=== PATIENT | female | born 1970 | race Caucasian/White ===

== ENCOUNTER 2016-03-09 13:17 | Emergency (ER) | payer OTHER ==
[2016-03-09 13:25] VITALS: BMI 27.3
[2016-03-09 14:13] LABS: URINE APPEARANCE SLCLOUDY; URINE BILIRUBIN NEGATIVE (NEGATIVE); URINE BLOOD NEGATIVE (NEGATIVE); URINE COLOR YELLOW; URINE GLUCOSE (UA) NEGATIVE (NEGATIVE); URINE KETONE NEGATIVE (NEGATIVE); URINE NITRITE NEGATIVE (NEGATIVE); URINE PROTEIN NEGATIVE (NEGATIVE); URINE UROBILINOGEN NEGATIVE E.U./dl (0.2-1.0)
[2016-03-09] MEDS ORDERED: METOCLOPRAMIDE HCL INJECTION 10 MG/2 ML VIAL IVPB ONE (14:17)
[2016-03-09 14:18] LABS: URINE LEUK ESTERASE TRACE (NEGATIVE)
[2016-03-09] MEDS ORDERED: SODIUM CHLORIDE 1,000 ML IV STA (14:18)
[2016-03-09 14:25] LABS: URINE MUCUS RARE; URINE RBC 1 /hpf (0-3); URINE WBC 1 /hpf (3-5)
[2016-03-09] MEDS ORDERED: METOCLOPRAMIDE HCL INJECTION 10 MG/2 ML VIAL ONE (14:26)
--- NOTE | 2016-03-09 14:30 | PDOC ---
History of Present Illness - General History Source: Patient - History of Present Illness Initial Comments: 03/09/16 14:41 The patient is a 46 year old female with a significant past medical history of asthma, legal blindness, and gastric bypass 2010 who presents to the Emergency Department with complaints of constant left-sided pressured headache and eye pain since last night. Pt reports experiencing nausea and dizziness before her headache was started. Pt reports taking Tylenol for her pain, with no relief. She denies any family history of migraines. She denies any fall or trauma. Pt denies fever, chills, abdominal pain, vomiting, diarrhea, chest pain, SOB, palpitations, back pain, neck pain. ALL:sulfamethoxazole, trimethoprim <Kalyn Lacey - Last Filed: 03/09/16 14:41> - General History Source: Patient Exam Limitations: No Limitations <Addy Garcia - Last Filed: 03/09/16 16:32> - General Chief Complaint: Pain Stated Complaint: PAIN Time Seen by Provider: 03/09/16 14:00 Past History <Kalyn Lacey - Last Filed: 03/09/16 14:41> - Past Medical History Asthma: Yes - Surgical History Abdominal Surgery: Yes (GASTRIC BYPASS: 10/2010) - Immunization History Td Vaccination: Yes Immunization Up to Date: Yes - Psycho/Social/Smoking Cessation Hx Anxiety: No Suicidal Ideation: No Smoking Status: Yes Smoking History: Never smoked Number of Cigarettes Smoked Daily: 0 Hx Alcohol Use: No Drug/Substance Use Hx: No Substance Use Type: None <Addy Garcia - Last Filed: 03/09/16 16:32> - Past Medical History Allergies/Adverse Reactions: Allergies Allergy/AdvReac Type Severity Reaction Status Date / Time sulfamethoxazole Allergy Verified 12/27/14 17:28 [From Bactrim] trimethoprim [From Bactrim] Allergy Verified 03/09/16 13:25 Home Medications: Ambulatory Orders Diphenhydramine HCl [Benadryl -] 25 mg PO Q6H PRN #20 capsule 03/09/16 Metoclopramide HCl [Reglan] 10 mg PO Q6H PRN #15 tablet 03/09/16 Naproxen [Naprosyn -] 500 mg PO BID PRN #14 tablet 03/09/16 Review of Systems - Review of Systems Able to Perform ROS?: Yes Comments:: 03/09/16 14:42 GENERAL/CONSTITUTIONAL: No fever or chills. No weakness. HEAD, EYES, EARS, NOSE AND THROAT: Yes: left eye pain. No: ear pain or discharge. No sore throat. CARDIOVASCULAR: No chest pain or shortness of breath. RESPIRATORY: No cough, wheezing, or hemoptysis. GASTROINTESTINAL: Yes: nausea No: vomiting, diarrhea or constipation. GENITOURINARY: No dysuria, frequency, or change in urination. MUSCULOSKELETAL: No joint or muscle swelling or pain. No neck or back pain. SKIN: No rash NEUROLOGIC: Yes: headache, dizziness No vertigo, loss of consciousness. ENDOCRINE: No increased thirst. No abnormal weight change. HEMATOLOGIC/LYMPHATIC: No anemia, easy bleeding, or history of blood clots. ALLERGIC/IMMUNOLOGIC: No hives or skin allergy. All Other Systems: Reviewed and Negative <Kalyn Lacey - Last Filed: 03/09/16 14:41> *Physical Exam - Vital Signs Last Vital Signs Temp Pulse Resp BP Pulse Ox 97.5 F L 70 20 109/70 100 03/09/16 13:22 03/09/16 13:22 03/09/16 13:22 03/09/16 13:22 03/09/16 13:22 - Physical Exam Comments: 03/09/16 14:44 GENERAL: Awake, alert, and fully oriented, in no acute distress HEAD: No signs of trauma EYES: +Chronic bilateral nystagmus. PERRLA, EOMI, sclera anicteric, conjunctiva clear ENT: Auricles normal inspection, hearing grossly normal, nares patent, oropharynx clear without exudates. Moist mucosa NECK: Normal ROM, supple, no lymphadenopathy, JVD, or masses LUNGS: Breath sounds equal, clear to auscultation bilaterally. No wheezes, and no crackles HEART: Regular rate and rhythm, normal S1 and S2, no murmurs, rubs or gallops ABDOMEN: Soft, nontender, normoactive bowel sounds. No guarding, no rebound. No masses EXTREMITIES: Normal range of motion, no edema. No clubbing or cyanosis. No cords, erythema, or tenderness NEUROLOGICAL: +5/5 strength upper and lower extremities.Sensation intact No facial drip. Finger to nose intact. Speech normal. Cranial nerves II through XII intact. normal gait. SKIN: Warm, Dry, normal turgor, no rashes or lesions noted. <RufusconradKalyn - Last Filed: 03/09/16 14:41> - Vital Signs Last Vital Signs Temp Pulse Resp BP Pulse Ox 97.5 F L 70 20 109/70 100 03/09/16 13:22 03/09/16 13:22 03/09/16 13:22 03/09/16 13:22 03/09/16 13:22 <Addy Garcia - Last Filed: 03/09/16 16:32> NIH Stroke Scale - Last Known Well Date/Time & Onset Date Last Known Well: 03/08/16 - Initial Evaluation Level of consciousness: Alert Ask patient the month and their age: Answers both correctly Ask patient to open & close eyes; make fist and let go: Obeys both correctly Best gaze (horizontal eye movement): Normal Visual field testing: No visual field loss Facial paresis (Show teeth/raise eyebrows/close eyes tight): Normal symmetrical movement Motor Function: Left Arm: Normal Motor Function: Right Arm: Normal (extends arm 90 (or 45) degrees for 10 seconds without drift Motor Function: Left Leg: Normal (extends leg 30 degrees for 5 seconds without drift) Motor Function: Right Leg: Normal (extends leg 30 degrees for 5 seconds without drift) Limb Ataxia: No ataxia Sensory(Use pinprick test arms,legs,trunk,face/side to side): Normal Best language (Describe picture, name items, read sentences): No Aphasia Dysarthria (read several words): Normal articulation Extinction and Inattention: No abnormality - Total Score NIH Stroke Scale Score: 0 <Addy Garcia - Last Filed: 03/09/16 16:32> Critical Care Time/[facility] Note - Medical Decision Making Note: 03/09/16 14:27 A portion of this note was documented by scribe services under my direction. I have reviewed the details of the note, within reason, and agree with the documentation with the following case summary and management plan written by me. Patient treated in the ED. Nursing notes are reviewed and incorporated into the medical decision-making. Vital signs reviewed. Peripheral IV access obtained by the nurse, laboratory studies are drawn and sent, reviewed and interpreted by myself. Vital Signs Temp Pulse Resp BP Pulse Ox 97.5 F L 70 20 109/70 100 03/09/16 13:22 03/09/16 13:22 03/09/16 13:22 03/09/16 13:22 03/09/16 13:22 46 year old female with history of legal blindness presents with left sided gradual headache. States that it is tension-like headache that is constant. Occasional photophobia. No fevers or neck stiffness. No history of migraines or family history. Denies trauma. I suspect that the headache is a migraine. Will treat with migraine medications and reassess. Given 1st time episode of headache, will perform head CT. I do NOT suspect SAH at this time (not thunderclapping, not sudden onset, and not worst headache of life). 03/09/16 16:[address] reviewed. No acute findings. Patient's headache resolved with IV benadryl and reglan. Again, likely migraines. I instructed the patient to write in a migraine journal as well to follow up with neurology. Patient verbalizes understanding and agrees with plan. I discussed the physical exam findings, ancillary test results and final diagnoses with the patient. I answered all of the patient's questions. The patient was satisfied with the care received and felt comfortable with the discharge plan and treatment plan. The patient will call their primary care physician within 24 hours to arrange follow-up and will return to the Emergency Department with any new, persistant or worsening symptoms. <Addy Garcia - Last Filed: 03/09/16 16:32> Discharge Disposition <Kalyn Lacey - Last Filed: 03/09/16 14:41> - Discharge Dispostion Admit: No <Addy Garcia - Last Filed: 03/09/16 16:32> - Diagnosis Migraine Qualifiers: Migraine type: other Status migrainosus presence: without status migrainosus Intractability: not intractable Qualified Code(s): G43.809 - Other migraine, not intractable, without status migrainosus - Discharge Dispostion Disposition: HOME Condition at time of disposition: Good - Prescriptions Prescriptions: Diphenhydramine HCl [Benadryl -] 25 mg PO Q6H PRN #20 capsule PRN Reason: Itching/Headache Naproxen [Naprosyn -] 500 mg PO BID PRN #14 tablet PRN Reason: Headache Metoclopramide HCl [Reglan] 10 mg PO Q6H PRN #15 tablet PRN Reason: Nausea/Headache - Referrals Referrals: STAFF,NOT ON [Primary Care Provider] - Richard Burris MD [Staff Physician] - - Patient Instructions Printed Discharge Instructions: DI for Migraine, DI for Headache Additional Instructions: Please take 500 mg naproxen every 12 hours as needed for headache. For additional relief, you may take 10 mg reglan every 6 hours and/or a tablet of benadryl every 6 hours as needed for headache. Please make a migraine journal. Follow up with a neurologist. Call to schedule an appointment.
[2016-03-09 16:44] VITALS: BP 105/64; PULSE 68; TEMP 98.4
== END 2016-03-09 16:44 | disposition home or self-care (01) ==
LOC: JER 13:17
PROC: 3E033GC Introduction of Other Therapeutic Substance into Peripheral Vein, Percutaneous Approach (ICD-10-PCS; principal; 2016-03-09)
DX: G43.809 Other migraine, not intractable, without status migrainosus (principal)
CPT/HCPCS: 70450-TC; 81003; 81015; 84703; 96374; 96375; 99282-25

== ENCOUNTER 2016-05-27 17:54 | Emergency (ER) | payer OTHER ==
--- NOTE | 2016-05-27 18:00 | PDOC ---
Rapid Medical Evaluation Time Seen by Provider: 05/27/16 17:58 Medical Evaluation: Allergies Allergy/AdvReac Type Severity Reaction Status Date / Time sulfamethoxazole Allergy Verified 12/27/14 17:28 [From Bactrim] trimethoprim [From Bactrim] Allergy Verified 03/09/16 13:25 05/27/16 17:58 46 year old female with suprapubic pain and dysuria since morning. Lower back pain, bilateral. No fevers/chills, nausa/vomiting. V/s notable for P 102. -UA/culture/urine -To FT for further evaluation
[2016-05-27 18:10] VITALS: BP 107/66; PULSE 89; TEMP 97.3; BMI 28.3
[2016-05-27 18:28] LABS: URINE APPEARANCE CLEAR; URINE BILIRUBIN NEGATIVE (NEGATIVE); URINE COLOR LTYELLOW; URINE GLUCOSE (UA) 2+ (NEGATIVE); URINE KETONE NEGATIVE (NEGATIVE); URINE LEUK ESTERASE NEGATIVE (NEGATIVE); URINE NITRITE NEGATIVE (NEGATIVE); URINE PROTEIN NEGATIVE (NEGATIVE); URINE UROBILINOGEN NEGATIVE E.U./dl (0.2-1.0)
[2016-05-27 18:29] LABS: URINE BLOOD 1+ (NEGATIVE)
--- NOTE | 2016-05-27 19:06 | PDOC ---
History of Present Illness - General Chief Complaint: Urinary Problem Stated Complaint: URINARY PROBLEM Time Seen by Provider: 05/27/16 17:58 History Source: Patient Exam Limitations: No Limitations - History of Present Illness Travel History: No Initial Comments: 05/28/16 22:55 She comes in with complaints of burning in her vulvar area. Is not sexually active, denies any vaginal drainage, but is concerned about recurrent urinary tract infection. Patient has been seen on a number of occasions, twice by myself with same types of complaints. Had never followed up with a specialist but can be insistent on need for antibiotics as she feels is a urinary tract infection. 2 instances of the past, one urinalysis revealed no infection but culture reported Escherichia coli, second visit urinalysis was negative with a negative urine culture. Patient denies any use of medications for relief of same Timing/Duration: reports: constant Quality: reports: mild, moderate, sharpness Pain Radiation: reports: no radiation Activities at Onset: reports: none Past History - Travel Traveled outside of the country in the last 30 days: No Close contact w/someone who was outside of country & ill: No - Past Medical History Allergies/Adverse Reactions: Allergies Allergy/AdvReac Type Severity Reaction Status Date / Time sulfamethoxazole Allergy Verified 05/27/16 17:59 [From Bactrim] trimethoprim [From Bactrim] Allergy Verified 05/27/16 17:59 Home Medications: Ambulatory Orders Diphenhydramine HCl [Benadryl -] 25 mg PO Q6H PRN #20 capsule 03/09/16 Metoclopramide HCl [Reglan] 10 mg PO Q6H PRN #15 tablet 03/09/16 Naproxen [Naprosyn -] 500 mg PO BID PRN #14 tablet 03/09/16 Hydrocortisone 2.5% Topical Cr [Anusol 2.5% Hc Cream -] 1 applic RC DAILY #1 tube 05/27/16 Asthma: Yes - Surgical History Abdominal Surgery: Yes (GASTRIC BYPASS: 10/2010) - Immunization History Td Vaccination: Yes Immunization Up to Date: Yes - Psycho/Social/Smoking Cessation Hx Anxiety: No Suicidal Ideation: No Smoking Status: Yes Smoking History: Never smoked Have you smoked in the past 12 months: No Number of Cigarettes Smoked Daily: 0 Information on smoking cessation initiated: No Hx Alcohol Use: No Drug/Substance Use Hx: No Substance Use Type: None Review of Systems - Review of Systems Able to Perform ROS?: Yes Is the patient limited Beninese proficient: Yes Constitutional: Yes: Symptoms Reported, See HPI, Malaise. No: Fever HEENTM: No: Symptoms Reported Respiratory: Yes: See HPI. No: Symptoms reported All Other Systems: Reviewed and Negative *Physical Exam - Vital Signs Last Vital Signs Temp Pulse Resp BP Pulse Ox 97.3 F L 89 18 107/66 100 05/27/16 17:59 05/27/16 17:59 05/27/16 17:59 05/27/16 17:59 05/27/16 17:59 - Physical Exam General Appearance: Yes: Appropriately Dressed, Apparent Distress HEENT: positive: WALDO, Normal ENT Inspection, TMs Normal, Pharynx Normal Neck: positive: Supple. negative: Tender Respiratory/Chest: positive: Lungs Clear, Normal Breath Sounds Female Pelvic Exam: positive: normal external exam (swelling, ulcerations or lesions, no masses, no tenderness to labial folds) Gastrointestinal/Abdominal: positive: Soft. negative: Tender Musculoskeletal: positive: Normal Inspection Extremity: positive: Normal Capillary Refill, Normal Inspection Integumentary: positive: Normal Color, Dry, Warm Neurologic: positive: etched circuit processor II-XII NML intact, Fully Oriented, Alert, Normal Mood/ Affect, Normal Response, Motor Strength 5/5 ED Treatment Course - ADDITIONAL ORDERS Additional order review: Laboratory Results 05/27/16 18:15 Urine Color Ltyellow Urine Appearance Clear Urine pH 5.0 Ur Specific [place] 1.015 Urine Protein Negative Urine Glucose (UA) 2+ H Urine Ketones Negative Urine Blood 1+ H Urine Nitrite Negative Urine Bilirubin Negative Urine Urobilinogen Negative Ur Leukocyte Esterase Negative Urine HCG, Qual Negative Progress Note - Progress Note Progress Note: Vulva dyspnea, will treat conservatively and follow through with careful tracking of urine culture Medical Decision Making - Medical Decision Making 05/27/16 19:13 Urinalysis does not reveal urinary tract infection although some mild glucose urea at +2. Fingerstick is 88. Discussed with patient in light of history of negative UAs and positive cultures, agreed will call her tomorrow with a pulmonary microbiology report and if necessary antibiotics will be called in. Meanwhile will treat discomfort with hydrocortisone and topical anesthetic, fluids, and refer to [facility]. *DC/Admit/Observation/Transfer Diagnosis at time of Disposition: Vulvodynia, unspecified - Discharge Dispostion Disposition: HOME Condition at time of disposition: Improved Admit: No - Prescriptions Prescriptions: Hydrocortisone 2.5% Topical Cr [Anusol 2.5% Hc Cream -] 1 applic RC DAILY #1 tube - Referrals Referrals: Christi Booker MD [Primary Care Provider] - Aidan Burciaga MD [Staff Physician] - - Patient Instructions Printed Discharge Instructions: Vulvodynia Additional Instructions: Rest, drink lots of fluids: Teas, water, soups Avoid contact with others and symptoms resolved Lots of handwashing and good hygiene Continue [id number] medications for symptomatic relief Tylenol or Motrin for fever and pain Followup with private physician in one week for repeat urinalysis/reevaluation Return to emergency department for worsened symptoms, fevers, dehydration
[2016-05-27 19:57] LABS: URINE BACTERIA RARE /hpf (NONE SEEN); URINE RBC 15 /hpf (0-3); URINE WBC 1 /hpf (3-5)
== END 2016-05-27 19:41 | disposition home or self-care (01) ==
LOC: JERFT 17:54 → JER 17:54 → JERFT 19:41
DX: N94.818 Other vulvodynia (principal)
CPT/HCPCS: 81003; 81015; 84703; 87086; 99281-25

== ENCOUNTER 2016-06-06 15:37 | Emergency (ER) | payer OTHER ==
[2016-06-06 15:56] VITALS: BP 103/61; PULSE 73; TEMP 97.1; BMI 27.2
--- NOTE | 2016-06-06 16:31 | PDOC ---
History of Present Illness - General Chief Complaint: Back Pain Stated Complaint: LOWER BACK PAIN Time Seen by Provider: 06/06/16 16:05 History Source: Patient Exam Limitations: No Limitations - History of Present Illness Initial Comments: 06/06/16 16:29 46 yr female past medical history of chronic low back pain presents to ER with c /o low back pain worse since yesterday. Pt denies trauma no fever or chills no abd pain neg urinary or bowel dysfunction. Pt states bending over, sitting to standing makes pain worse. no leg pain or saddle anesthesia. Severity: reports: mild Pain Location: reports: back Past History - Past Medical History Allergies/Adverse Reactions: Allergies Allergy/AdvReac Type Severity Reaction Status Date / Time sulfamethoxazole Allergy Verified 06/06/16 15:52 [From Bactrim] trimethoprim [From Bactrim] Allergy Verified 06/06/16 15:52 Home Medications: Ambulatory Orders Naproxen [Naprosyn -] 500 mg PO BID #14 tablet 06/06/16 Asthma: Yes Other medical history: LEGALLY BLIND, CHRONIC BACK PAIN - Surgical History Abdominal Surgery: Yes (GASTRIC BYPASS: 10/2010) - Immunization History Td Vaccination: Yes Immunization Up to Date: Yes - Psycho/Social/Smoking Cessation Hx Anxiety: No Suicidal Ideation: No Smoking Status: Yes Smoking History: Never smoked Have you smoked in the past 12 months: No Number of Cigarettes Smoked Daily: 0 Hx Alcohol Use: No Drug/Substance Use Hx: No Substance Use Type: None Trauma Specific PMHX - Complaint Specific PMHX Arthritis: No Back Injury: No Neck Injury: No Hx Sacro Iliac Joint Dysfunction: No Review of Systems - Review of Systems Able to Perform ROS?: Yes Is the patient limited Greek proficient: No Constitutional: No: Symptoms Reported HEENTM: No: Symptoms Reported Respiratory: No: Symptoms reported Cardiac (ROS): No: Symptoms Reported ABD/GI: No: Symptoms Reported : No: Symptoms Reported Musculoskeletal: Yes: Back Pain. No: Symptoms Reported Integumentary: No: Symptoms Reported Neurological: No: Symptoms reported *Physical Exam - Vital Signs Last Vital Signs Temp Pulse Resp BP Pulse Ox 97.1 F L 73 19 103/61 98 06/06/16 15:52 06/06/16 15:52 06/06/16 15:52 06/06/16 15:52 06/06/16 15:52 - Physical Exam General Appearance: Yes: Nourished, Appropriately Dressed HEENT: positive: EOMI, WALDO Neck: negative: Tender Respiratory/Chest: positive: Lungs Clear, Normal Breath Sounds. negative: Chest Tender Cardiovascular: positive: Regular Rhythm, Regular Rate Gastrointestinal/Abdominal: positive: Normal Bowel Sounds, Soft. negative: Tender Musculoskeletal: positive: Normal Inspection, Vertebral Tenderness (lumbar spine point tenderness ) Extremity: positive: Normal Capillary Refill, Normal Inspection, Normal Range of Motion Integumentary: positive: Normal Color, Dry, Warm Neurologic: positive: Fully Oriented, Alert, Normal Mood/Affect, Normal Response , Motor Strength 5/5 Medical Decision Making - Medical Decision Making 06/06/16 16:31 cc: low back pain acute on chronic not relieved with tylenol no urine or bowel dysfunction neg abd pain no rashes will check UA r/o (negative per Mckenna in microbiology) toradol for pain 06/06/16 18:00 xray is negative urine is negative will treat with NSAIDS follow up with the orthopedist. 06/06/16 18:02 *DC/Admit/Observation/Transfer Diagnosis at time of Disposition: Back pain Qualifiers: Back pain location: low back pain Chronicity: chronic Back pain laterality: midline Sciatica presence: without sciatica Qualified Code(s): M54.5 - Low back pain - Discharge Dispostion Disposition: HOME Condition at time of disposition: Good - Prescriptions Prescriptions: Naproxen [Naprosyn -] 500 mg PO BID #14 tablet - Referrals Referrals: Christi Booker MD [Primary Care Provider] - Daniel Juarez MD [Staff Physician] - - Patient Instructions Additional Instructions: take naprosyn as directed for pain follow with the orthopedist next week call Thursday to make appointment return to ER for any worsening symtpoms you may apply ice to the lower back every 2hrs for 20 minutes for pain
[2016-06-06 16:43] LABS: URINE APPEARANCE CLEAR; URINE BILIRUBIN NEGATIVE (NEGATIVE); URINE BLOOD NEGATIVE (NEGATIVE); URINE COLOR YELLOW; URINE GLUCOSE (UA) NEGATIVE (NEGATIVE); URINE KETONE TRACE (NEGATIVE); URINE LEUK ESTERASE NEGATIVE (NEGATIVE); URINE NITRITE NEGATIVE (NEGATIVE); URINE PROTEIN NEGATIVE (NEGATIVE); URINE UROBILINOGEN NEGATIVE E.U./dl (0.2-1.0)
[2016-06-06] MEDS ORDERED: KETOROLAC TROMETHAMINE 60 MG/2 ML VIAL IM ONE (17:31)
[2016-06-06] MEDS ORDERED: KETOROLAC TROMETHAMINE 60 MG/2 ML VIAL ONE (17:32)
== END 2016-06-06 18:15 | disposition home or self-care (01) ==
LOC: JERFT 15:37
PROC: 3E0233Z Introduction of Anti-inflammatory into Muscle, Percutaneous Approach (ICD-10-PCS; principal; 2016-06-06)
DX: M54.5 Low back pain (principal)
CPT/HCPCS: 72100-TC; 81003; 84703; 96372; 99281-25

== ENCOUNTER 2016-09-16 15:18 | Emergency (ER) | payer OTHER ==
[2016-09-16 15:26] VITALS: BP 90/53; PULSE 82; TEMP 98; BMI 28.3
[2016-09-16] MEDS ORDERED: ALBUTEROL SO4 2.5/IPRATROPIUM 0.5 INH SOL 3 ML VIAL.NEB. NEB ONE (15:42)
[2016-09-16] MEDS ORDERED: LIDOCAINE VISCOUS 2% ORAL/TOP 20 ML UNIT-DOSE CUP MM ONE (15:42)
--- NOTE | 2016-09-16 16:18 | PDOC ---
History of Present Illness - General Chief Complaint: Asthma Stated Complaint: SOB/asthma Time Seen by Provider: 09/16/16 15:34 History Source: Patient Exam Limitations: No Limitations - History of Present Illness Initial Comments: 09/16/16 16:00 46-year-old female presents to the ED with complaints of sore throat, dry irritating cough and irritation to her bronchial region after inhaling chemicals 2 days ago while at the job. Patient states initially she thought symptoms wouldr esolve but since symptoms continue and have caused her difficulty swallowing she decided come to the ER. Patient denies wheezing, shortness of breath, vomiting up blood, nasal bleeding, or previous episodes. Timing/Duration: reports: just prior to arrival Severity: reports: mild, moderate Possible Cause: Yes: no prior episodes Modifying Factors: improves with: coughing Associated Symptoms: reports: cough, sore throat. denies: wheezing Past History - Past Medical History Allergies/Adverse Reactions: Allergies Allergy/AdvReac Type Severity Reaction Status Date / Time sulfamethoxazole Allergy Verified 09/16/16 15:21 [From Bactrim] trimethoprim [From Bactrim] Allergy Verified 09/16/16 15:21 Home Medications: Ambulatory Orders Naproxen [Naprosyn -] 500 mg PO BID #14 tablet 06/06/16 Asthma: Yes - Surgical History Abdominal Surgery: Yes (GASTRIC BYPASS: 10/2010) - Reproductive History LMP Normal: Yes Is Patient Now?: No - Immunization History Td Vaccination: Yes Immunization Up to Date: Yes - Psycho/Social/Smoking Cessation Hx Anxiety: No Suicidal Ideation: No Smoking Status: Yes Smoking History: Never smoked Have you smoked in the past 12 months: No Number of Cigarettes Smoked Daily: 0 Information on smoking cessation initiated: No Hx Alcohol Use: No Drug/Substance Use Hx: No Substance Use Type: None Patient Lives Alone: No Lives with/in: spouse/SO Respiratory Specific PMHX - Complaint Specific PMHX Angina: No Bronchitis: Yes Pneumonia: No Pulmonary Embolus: No TB (Tuberculosis): No Review of Systems - Review of Systems Able to Perform ROS?: Yes Constitutional: No: Symptoms Reported HEENTM: Yes: Throat Pain Respiratory: No: Cough, Shortness of Breath Cardiac (ROS): No: Symptoms Reported ABD/GI: No: Symptoms Reported : No: Symptoms Reported Musculoskeletal: No: Symptoms Reported Integumentary: No: Symptoms Reported Neurological: No: Symptoms reported Endocrine: No: Symptoms Reported Hematologic/Lymphatic: No: Symptoms Reported *Physical Exam - Vital Signs Last Vital Signs Temp Pulse Resp BP Pulse Ox 98.0 F 82 18 90/53 98 09/16/16 15:21 09/16/16 15:21 09/16/16 15:21 09/16/16 15:21 09/16/16 15:21 - Physical Exam General Appearance: Yes: Nourished, Appropriately Dressed. No: Apparent Distress HEENT: positive: EOMI, WALDO, TMs Normal, Pharyngeal Erythema (mild. 1+ tonsils . uvula midline.). negative: Pale Conjunctivae Neck: positive: Supple Respiratory/Chest: positive: Lungs Clear, Normal Breath Sounds. negative: Respiratory Distress, Accessory Muscle Use Cardiovascular: positive: Regular Rhythm, Regular Rate. negative: Murmur Gastrointestinal/Abdominal: positive: Soft. negative: Tenderness Musculoskeletal: negative: CVA Tenderness Extremity: positive: Normal Capillary Refill. negative: Pedal Edema Integumentary: positive: Normal Color, Warm, Moist Neurologic: positive: Normal Mood/Affect, Motor Strength 5/5 (ambulatory) ED Treatment Course - Medications Given in the ED: ED Medications Discontinued Medications Generic Name Dose Route Start Last Admin Trade Name Freq PRN Reason Stop Dose Admin Albuterol/Ipratropium 1 amp 09/16/16 15:42 09/16/16 16:08 Duoneb - NEB 09/16/16 15:43 1 amp ONCE ONE Administration Lidocaine HCl 10 ml 09/16/16 15:42 09/16/16 16:08 Xylocaine 2% Viscous Oral - MM 09/16/16 15:43 10 ml ONCE ONE Administration Medical Decision Making - Medical Decision Making 09/16/16 16:00 Patient complains of sore throat, cough, and difficulty swallowing after inhaling chemicals while at work 2 days ago. Patient states history of asthma and does not have an inhaler anymore so decided come to the ER since symptoms continued. Patient ordered for DuoNeb here secondary to feeling of difficulty swallowing and cough. Patient also ordered for viscous lidocaine secondary sore throat. Will reevaluate shortly. 09/16/16 16:25 patient states feeling better with relief of cough and moderate relief of sore throat. Patient be discharged home with recommendations to use Chloraseptic spray, rest, drink plenty of fluids and non-abrasive. *DC/Admit/Observation/Transfer Diagnosis at time of Disposition: Cough, Sore throat - Discharge Dispostion Disposition: HOME - Patient Instructions Printed Discharge Instructions: Sore Throat, DI for Cough -- Adult Additional Instructions: Use Chloraseptic spray to alleviate your sore throat. Drink plenty of fluids. REST your voice Eat non- Abrasive and soft foods. Avoid talking too much. An use your inhaler as needed for cough
== END 2016-09-16 17:09 | disposition home or self-care (01) ==
LOC: JERFT 15:18
DX: R07.0 Pain in throat (principal); T59.891A Toxic effect of other specified gases, fumes and vapors, accidental (unintentional), initial encounter; R05 Cough; Y92.89 Other specified places as the place of occurrence of the external cause
CPT/HCPCS: 99281-25

== ENCOUNTER 2016-10-29 17:23 | Emergency (ER) | payer OTHER ==
[2016-10-29 17:36] VITALS: BP 91/60; PULSE 76; TEMP 98; BMI 28.3
--- NOTE | 2016-10-29 18:00 | PDOC ---
History of Present Illness - General Chief Complaint: Urinary Problem Stated Complaint: PAIN, ACUTE Time Seen by Provider: 10/29/16 17:39 History Source: Patient Exam Limitations: No Limitations - History of Present Illness Initial Comments: 10/29/16 18:00 Patient is a 46-year-old female, no significant medical history currently no medication reports dysuria started this morning when she woke up, denies any hematuria, no back pain. Patient states she has history of urinary tract infections and now with similar symptoms. Denies any sexual contact for 16 years. Past Medical History: Denies. Allergies: Bactrim Medications: None Family History: Non-contributory Social History: Denies smoking, alcohol use, or IVDU Review of Systems GENERAL/CONSTITUTIONAL: No fever or chills. No weakness. No weight change. HEAD, EYES, EARS, NOSE AND THROAT: No change in vision. No ear pain or discharge. No sore throat. CARDIOVASCULAR: No chest pain or shortness of breath. RESPIRATORY: No cough, wheezing, or hemoptysis. GASTROINTESTINAL: No nausea, vomiting, diarrhea or constipation. No rectal bleeding. GENITOURINARY: Dysuria and frequency, no hematuria MUSCULOSKELETAL: No joint or muscle swelling or pain. No neck or back pain. SKIN AND BREASTS: No rash or easy bruising. NEUROLOGIC: No headache, vertigo, loss of consciousness, or loss of sensation. ENDOCRINE: No increased thirst. No abnormal weight change. HEMATOLOGIC/LYMPHATIC: No anemia, easy bleeding, or history of blood clots. ALLERGIC/IMMUNOLOGIC: No hives or skin allergy. No latex allergy. Physical Exam: GENERAL: The patient is awake, alert, and fully oriented, in no acute distress. HEAD: Normal with no signs of trauma. EYES: Pupils equal, round and reactive to light, extraocular movements intact, sclera anicteric, conjunctiva clear. ENT: Ears normal, nares patent, oropharynx clear without exudates. Moist mucous membranes. No uvula deviation NECK: Normal range of motion, supple without lymphadenopathy, JVD, or masses. LUNGS: Breath sounds equal, clear to auscultation bilaterally. No wheezes, and no crackles. HEART: Regular rate and rhythm, normal S1 and S2 without murmur, rub or gallop. ABDOMEN: Soft, nontender, normoactive bowel sounds. No guarding, no rebound. No masses. No bruising or abrasions GENITALIA: External genitalia without any edema, no lesions, vaginal vault with no discharge. Cervical os closed. MUSCULOSKELETAL: Normal range of motion, no edema. No clubbing or cyanosis. No cords, erythema, or tenderness. No CVA Tenderness with fist. NEUROLOGICAL: Cranial nerves II through XII grossly intact. Normal speech, normal gait. PSYCH: Normal mood, normal affect. SKIN: Warm, Dry, normal turgor, no rashes or lesions noted. 10/29/16 18:37 Past History - Past Medical History Allergies/Adverse Reactions: Allergies Allergy/AdvReac Type Severity Reaction Status Date / Time sulfamethoxazole Allergy Verified 10/29/16 17:36 [From Bactrim] trimethoprim [From Bactrim] Allergy Verified 10/29/16 17:36 Home Medications: Ambulatory Orders Albuterol Sulfate Inhaler - [Ventolin HFA Inhaler -] 1 - 2 inh PO QID PRN #1 inhaler 09/16/16 Nitrofurantoin Monohyd/M-Cryst [Macrobid -] 100 mg PO BID #14 capsule 10/29/16 Phenazopyridine HCl [Pyridium] 200 mg PO TID #6 tablet 10/29/16 Asthma: Yes - Surgical History Abdominal Surgery: Yes (GASTRIC BYPASS: 10/2010) - Immunization History Td Vaccination: Yes Immunization Up to Date: Yes - Psycho/Social/Smoking Cessation Hx Anxiety: No Suicidal Ideation: No Smoking Status: Yes Smoking History: Never smoked Have you smoked in the past 12 months: No Number of Cigarettes Smoked Daily: 0 Hx Alcohol Use: No Drug/Substance Use Hx: No Substance Use Type: None *Physical Exam - Vital Signs Last Vital Signs Temp Pulse Resp BP Pulse Ox 98.0 F 76 20 91/60 99 10/29/16 17:33 10/29/16 17:33 10/29/16 17:33 10/29/16 17:33 10/29/16 17:33 Medical Decision Making - Medical Decision Making 10/29/16 18:03 A/P: Patient with dysuria, frequency, no hematuria. Patient with clinical signs of urinary tract infection plan is to perform urinalysis and urine culture 10/29/16 18:41 Laboratory Results - last 24 hr 10/29/16 10/29/16 17:50 18:09 Urine Color Ltyellow Urine Appearance Clear Urine pH 5.0 Urine Protein Negative Urine Glucose (UA) Negative Urine Ketones Negative Urine Blood 1+ H Urine Nitrite Negative Urine Bilirubin Negative Urine Urobilinogen Negative Ur Leukocyte Esterase 2+ H Urine HCG, Qual Negative Patient with +2 leukocyte esterase, microscopic still pending 10/29/16 18:44 + Urinary tract infection Will DC on macrobid. Follow up with urology. I discussed the physical exam findings, ancillary test results and final diagnoses with the patient. I answered all of the patient's questions. The patient was satisfied with the care received and felt comfortable with the discharge plan and treatment plan. The patient will call to arrange follow-up and will return to the Emergency Department with any new, persistent or worsening symptoms. *DC/Admit/Observation/Transfer Diagnosis at time of Disposition: Urinary tract infection Qualifiers: Urinary tract infection type: site unspecified Hematuria presence: without hematuria Qualified Code(s): N39.0 - Urinary tract infection, site not specified - Discharge Dispostion Disposition: HOME Condition at time of disposition: Good Admit: No - Prescriptions Prescriptions: Nitrofurantoin Monohyd/M-Cryst [Macrobid -] 100 mg PO BID #14 capsule Phenazopyridine HCl [Pyridium] 200 mg PO TID #6 tablet - Patient Instructions Printed Discharge Instructions: DI for Urinary Tract Infection (UTI) Additional Instructions: Recommend follow-up with urology Please note that the Pyridium for urinary pain may turn your urine orange If any fever, nausea vomiting, pain, back pain or any other concerns return to ER
[2016-10-29 18:04] LABS: URINE APPEARANCE CLEAR; URINE BILIRUBIN NEGATIVE (NEGATIVE); URINE BLOOD 1+ (NEGATIVE); URINE COLOR LTYELLOW; URINE GLUCOSE (UA) NEGATIVE (NEGATIVE); URINE KETONE NEGATIVE (NEGATIVE); URINE NITRITE NEGATIVE (NEGATIVE); URINE PROTEIN NEGATIVE (NEGATIVE); URINE UROBILINOGEN NEGATIVE mg/dL (0.2-1.0)
[2016-10-29 18:15] LABS: URINE LEUK ESTERASE 2+ (NEGATIVE)
[2016-10-29 18:36] LABS: URINE MUCUS RARE; URINE RBC 1 /hpf (0-3); URINE WBC 29 /hpf (3-5)
== END 2016-10-29 18:56 | disposition home or self-care (01) ==
LOC: JERFT 17:23
DX: N39.0 Urinary tract infection, site not specified (principal)
CPT/HCPCS: 81003; 81015; 84703; 87086; 99281-25

== ENCOUNTER 2017-01-25 20:23 | Emergency (ER) | payer OTHER ==
[2017-01-25 20:32] VITALS: BP 107/58; PULSE 102; TEMP 98.5; BMI 29.2
[2017-01-25] MEDS ORDERED: ALBUTEROL SO4 0.083% IH SOL 2.5 MG/3 ML VIAL.NEB. NEB ONE (20:34)
[2017-01-25] MEDS ORDERED: ALBUTEROL SO4 0.5 % INH SOLN 2.5 MG/0.5 ML VIAL.NEB. NEB ONE (20:35)
--- NOTE | 2017-01-25 21:56 | PDOC ---
History of Present Illness - General History Source: Patient - History of Present Illness Initial Comments: 01/25/17 21:40 The patient is a 46 year old female with a significant past medical history of asthma, legal blindness, and gastric bypass 2010 who presents to the Emergency Department with sore throat since and increasing difficulty breathing and coughing. Her history of asthma is mild, only 2 oe 3 episodes a year. Patient used her albuterol spray but with minimal results. <Mekhi Larios - Last Filed: 01/25/17 22:34> <India Britt - Last Filed: 01/25/17 22:42> - General Chief Complaint: Shortness of Breath Stated Complaint: S.O.B Time Seen by Provider: 01/25/17 20:48 Past History - Past Medical History Asthma: Yes COPD: No - Surgical History Abdominal Surgery: Yes (GASTRIC BYPASS: 10/2010) - Immunization History Td Vaccination: Yes Immunization Up to Date: Yes - Suicide/Smoking/Psychosocial Hx Smoking Status: Yes Smoking History: Never smoked Have you smoked in the past 12 months: No Number of Cigarettes Smoked Daily: 0 Information on smoking cessation initiated: Yes Hx Alcohol Use: No Drug/Substance Use Hx: No Substance Use Type: None <Mekhi Larios - Last Filed: 01/25/17 22:34> <India Britt - Last Filed: 01/25/17 22:42> - Past Medical History Allergies/Adverse Reactions: Allergies Allergy/AdvReac Type Severity Reaction Status Date / Time sulfamethoxazole Allergy Verified 01/25/17 20:25 [From Bactrim] trimethoprim [From Bactrim] Allergy Verified 01/25/17 20:25 Home Medications: Ambulatory Orders Albuterol Sulfate Inhaler - [Ventolin HFA Inhaler -] 1 - 2 inh PO QID PRN #1 inhaler 09/16/16 Azithromycin [Zithromax 250mg Tablets -] 250 mg PO DAILY #4 tablet 01/25/17 Azithromycin [Zithromax 250mg Tablets -] 250 mg PO DAILY 4 Days #4 tab 01/25/17 Respiratory Specific PMHX - Complaint Specific PMHX Angina: No Bronchitis: Yes Pneumonia: No Pulmonary Embolus: No TB (Tuberculosis): No <Mekhi Larios - Last Filed: 01/25/17 22:34> Review of Systems - Review of Systems Able to Perform ROS?: Yes Is the patient limited [place] Citizen proficient: No Constitutional: No: Symptoms Reported HEENTM: Yes: Nose Congestion. No: Symptoms Reported Respiratory: Yes: Cough Cardiac (ROS): No: Symptoms Reported ABD/GI: No: Symptoms Reported : No: Symptoms Reported <Mekhi Larios - Last Filed: 01/25/17 22:34> *Physical Exam - Vital Signs Last Vital Signs Temp Pulse Resp BP Pulse Ox 98.5 F 102 H 18 107/58 97 01/25/17 20:27 01/25/17 20:27 01/25/17 20:27 01/25/17 20:27 01/25/17 20:27 - Physical Exam General Appearance: Yes: Nourished, Appropriately Dressed. No: Apparent Distress HEENT: positive: WALDO, Normal ENT Inspection, Nasal Congestion, Rhinorrhea, Sinus Tenderness, Other (chornic nystagmus from , legally blind). negative : Muffled/Hoarse voice, Tonsillar Exudate, Tonsillar Erythema Neck: positive: Trachea midline, Normal Thyroid. negative: Tender Respiratory/Chest: positive: Lungs Clear, Normal Breath Sounds. negative: Chest Tender Cardiovascular: positive: Regular Rhythm, Regular Rate, S1, S2 Gastrointestinal/Abdominal: positive: Flat, Soft. negative: Normal Bowel Sounds , Tender Neurologic: positive: Fully Oriented, Alert, Normal Mood/Affect <HarrietMekhi - Last Filed: 01/25/17 22:34> - Vital Signs Last Vital Signs Temp Pulse Resp BP Pulse Ox 98.5 F 102 H 18 107/58 97 01/25/17 20:27 01/25/17 20:27 01/25/17 20:27 01/25/17 20:27 01/25/17 20:27 <India Britt - Last Filed: 01/25/17 22:42> ED Treatment Course - RADIOLOGY Radiology Studies Ordered: Category Date Time Status CHEST PA & LAT [RAD] Stat Radiology 01/25/17 21:30 Ordered - Medications Given in the ED: ED Medications Discontinued Medications Generic Name Dose Route Start Last Admin Trade Name Freq PRN Reason Stop Dose Admin Albuterol Sulfate 1 amp 01/25/17 20:35 01/25/17 20:35 Ventolin 0.5% - NEB 01/25/17 20:36 1 amp NOW ONE Administration <Mekhi Larios - Last Filed: 01/25/17 22:34> - Medications Given in the ED: ED Medications Discontinued Medications Generic Name Dose Route Start Last Admin Trade Name Diomedes PRN Reason Stop Dose Admin Albuterol Sulfate 1 amp 01/25/17 20:35 01/25/17 20:35 Ventolin 0.5% - NEB 01/25/17 20:36 1 amp NOW ONE Administration Azithromycin 500 mg 01/25/17 22:23 01/25/17 22:32 Azithromycin PO 01/25/17 22:24 500 mg ONCE ONE Administration Ibuprofen 600 mg 01/25/17 22:24 01/25/17 22:32 Motrin - PO 01/25/17 22:25 600 mg ONCE ONE Administration <India Britt - Last Filed: 01/25/17 22:42> Medical Decision Making - Medical Decision Making 01/25/17 22:00 46F with URI symptoms 01/25/17 22:32 Not wheezing, sinusitis CXR_ clear Likely walking pneumonia <Mekhi Larios - Last Filed: 01/25/17 22:34> *DC/Admit/Observation/Transfer - Discharge Dispostion Admit: No <Mekhi Larios - Last Filed: 01/25/17 22:34> <India Britt - Last Filed: 01/25/17 22:42> Diagnosis at time of Disposition: Atypical pneumonia - Discharge Dispostion Disposition: HOME - Prescriptions Prescriptions: Azithromycin [Zithromax 250mg Tablets -] 250 mg PO DAILY #4 tablet Azithromycin [Zithromax 250mg Tablets -] 250 mg PO DAILY 4 Days #4 tab - Patient Instructions Printed Discharge Instructions: Atypical Pneumonia Additional Instructions: Come back to ED for any new, worsening or concerning symptom. Follow up with primary care provider within the week
[2017-01-25] MEDS ORDERED: AZITHROMYCIN 500 MG TABLET PO ONE (22:23)
[2017-01-25] MEDS ORDERED: IBUPROFEN 600 MG TABLET (FP) PO ONE ×2 (22:24→22:29)
[2017-01-25] MEDS ORDERED: AZITHROMYCIN 250 MG TABLET ONE (22:29)
--- NOTE | 2017-01-25 22:30 | PDOC ---
Attending Attestation - Resident Resident Name: Mekhi Larios - HPI HPI: 01/25/17 22:28 Pt comes with cough x 5 days and sinusitis. She has a low grade temp - Physicial Exam PE: 01/25/17 22:29 Normal heart and lungs; py has a low grade temp. Bilat frontal and maxillary sinus pain 01/25/17 22:29 Agree with resident exam - Medical Decision Making 01/25/17 22:29 Home with zpak and ventolin inhaler
[2017-01-25] MEDS ORDERED: PSEUDOEPHEDRINE HCL 60 MG TABLET PO ONE (22:45)
== END 2017-01-25 22:37 | disposition home or self-care (01) ==
LOC: JER 20:23
PROC: 3E0F7GC Introduction of Other Therapeutic Substance into Respiratory Tract, Via Natural or Artificial Opening (ICD-10-PCS; principal; 2017-01-25)
DX: J18.9 Pneumonia, unspecified organism (principal); J45.909 Unspecified asthma, uncomplicated; H54.8 Legal blindness, as defined in USA; Z98.84 Bariatric surgery status
CPT/HCPCS: 71020-TC; 94640; 99282-25

== ENCOUNTER 2017-01-31 13:41 | Emergency (ER) | payer OTHER ==
[2017-01-31 14:24] VITALS: BP 112/61; PULSE 76; TEMP 97.4; BMI 29.2
[2017-01-31] MEDS ORDERED: guaiFENesin/D-METHORPHAN HB 10 ML UNIT-DOSE CUPS PO ONE (15:19)
[2017-01-31] MEDS ORDERED: ALBUTEROL SO4 2.5/IPRATROPIUM 0.5 INH SOL 3 ML VIAL.NEB. NEB ONE ×2 (15:19→15:23)
[2017-01-31] MEDS ORDERED: IBUPROFEN 600 MG TABLET (FP) PO ONE ×2 (15:19→15:23)
--- NOTE | 2017-01-31 15:19 | PDOC ---
History of Present Illness - General Chief Complaint: RX Refill Stated Complaint: RX REFILL Time Seen by Provider: 01/31/17 14:42 History Source: Patient Exam Limitations: No Limitations - History of Present Illness Initial Comments: 01/31/17 15:16 Patient is a 46-year-old female with past medical history of asthma, who presents to the emergency department today complaining of nasal congestion and sinus pain. She is currently requesting a refill of her azithromax and sudafed. Patient was seen in the emergency department one week ago (01/25/17) and diagnosed with a walking pneumonia. She was given azithromycin at that time. Patient finished the prescription. She was also given Sudafed for her congestion which she said was helping however today she feels that it is not working the same way. She states that her sinus pain is now getting worse and she feels more congested. Admits to cough. Denies fevers, chills, shortness of breath, nausea, vomiting, diarrhea, wheezing. Past History - Travel Traveled outside of the country in the last 30 days: No Close contact w/someone who was outside of country & ill: No - Past Medical History Allergies/Adverse Reactions: Allergies Allergy/AdvReac Type Severity Reaction Status Date / Time sulfamethoxazole Allergy Verified 01/31/17 14:21 [From Bactrim] trimethoprim [From Bactrim] Allergy Verified 01/31/17 14:21 Home Medications: Ambulatory Orders Acetaminophen W/ Codeine #3 [Tylenol # 3 -] 1 tab PO Q6H PRN #10 tablet MDD 4 Albuterol Sulfate Inhaler - [Ventolin HFA Inhaler -] 1 - 2 inh PO Q4H #1 inhaler 01/31/17 Ibuprofen 800 mg PO TID #30 tablet 01/31/17 Prednisone [Deltasone -] 40 mg PO DAILY #10 tablet 01/31/17 Asthma: Yes COPD: No DVT: No - Surgical History Abdominal Surgery: Yes (GASTRIC BYPASS: 10/2010) - Immunization History Td Vaccination: Yes Immunization Up to Date: Yes - Suicide/Smoking/Psychosocial Hx Smoking Status: Yes Smoking History: Former smoker Have you smoked in the past 12 months: No Number of Cigarettes Smoked Daily: 0 If you are a former smoker, when did you quit?: 20yrs Information on smoking cessation initiated: No Hx Alcohol Use: No Drug/Substance Use Hx: No Substance Use Type: None Review of Systems - Review of Systems Able to Perform ROS?: Yes Comments:: 01/31/17 15:19 CONSTITUTIONAL: Absent: fever, chills, diaphoresis, generalized weakness, malaise, loss of appetite HEENT: Present: nasal congestion, sinus pain Absent: throat pain, throat swelling, difficulty swallowing, mouth swelling, ear pain, eye pain, visual Changes CARDIOVASCULAR: Absent: chest pain, loss of consciousness, palpitations, irregular heart rate, peripheral edema RESPIRATORY: Present: cough Absent: cough, shortness of breath, dyspnea with exertion, orthopnea, wheezing, stridor, hemoptysis GASTROINTESTINAL: Absent: abdominal pain, abdominal distension, nausea, vomiting, diarrhea, constipation, melena, hematochezia GENITOURINARY: Absent: dysuria, frequency, urgency, hesitancy, hematuria, flank pain, genital pain MUSCULOSKELETAL: Absent: myalgia, arthralgia, joint swelling SKIN: Absent: rash, itching, pallor HEMATOLOGIC/IMMUNOLOGIC: Absent: easy bleeding, easy bruising, lymphadenopathy, frequent infections ENDOCRINE: Absent: unexplained weight gain, unexplained weight loss, heat intolerance, cold intolerance NEUROLOGIC: Absent: headache, focal weakness or paresthesias, dizziness, unsteady gait, seizure, mental status changes, bladder or bowel incontinence PSYCHIATRIC: Absent: anxiety, depression, suicidal or homicidal ideation, hallucinations. Is the patient limited [place] proficient: No *Physical Exam - Vital Signs Last Vital Signs Temp Pulse Resp BP Pulse Ox 97.4 F L 76 15 112/61 95 01/31/17 14:22 01/31/17 14:22 01/31/17 14:22 01/31/17 14:22 01/31/17 14:22 - Physical Exam Comments: 01/31/17 15:20 GENERAL: Well developed, well nourished. Awake and alert. No acute distress. HEENT: Normocephalic, atraumatic. PERRLA, EOMI. No conjunctival pallor. Sclera are non- icteric. Moist mucous membranes. Oropharynx is clear. TTP over maxillary sinuses. NECK: Supple. Full ROM. No JVD. Carotid pulses 2+ and symmetric, without bruits. No thyromegaly. No lymphadenopathy. CARDIOVASCULAR: Regular rate and rhythm. No murmurs, rubs, or gallops. Distal pulses are 2+ and symmetric. PULMONARY: Scattered wheezing. No evidence of respiratory distress. No rales or rhonchi. ABDOMINAL: Soft. Non-tender. Non-distended. No rebound or guarding. No organomegaly. Normoactive bowel sounds. MUSCULOSKELETAL Normal range of motion at all joints. No bony deformities or tenderness. No CVA tenderness. EXTREMITIES: No cyanosis. No clubbing. No edema. No calf tenderness. SKIN: Warm and dry. Normal capillary refill. No rashes. No jaundice. NEUROLOGICAL: Alert, awake, appropriate. Cranial nerves 2-12 intact. No deficits to light touch and temperature in face, upper extremities and lower extremities. No motor deficits in the in face, upper extremities and lower extremities. Normoreflexic in the upper and lower extremities. Normal speech. Toes are down- going bilaterally. Gait is normal without ataxia. PSYCHIATRIC: Cooperative. Good eye contact. Appropriate mood and affect. Medical Decision Making - Medical Decision Making 01/31/17 15:21 Patient is a 46-year-old female with PMH of asthma who presents to the emergency department today requesting a refill of her Sudafed for her sinus congestion, and for a prescription for a refill of her albuterol. Will treat pt. symptoms now in the ED. Will send rx for steroids, tylenol number three and albuterol to help with her cough and congestion. Pt. still covered on her azithromax and explained to her she does not need a new prescription at this time. 01/31/17 17:02 Pt. feeling much better after albuterol and robitussin treatment. Will d/c home at this time with new medications. Pt. instructed to f/u with her PCP on Thursday. 01/31/17 23:25 *DC/Admit/Observation/Transfer Diagnosis at time of Disposition: Sinusitis, Bronchospasm - Discharge Dispostion Disposition: HOME Condition at time of disposition: Good Admit: No - Prescriptions Prescriptions: Acetaminophen W/ Codeine #3 [Tylenol # 3 -] 1 tab PO Q6H PRN #10 tablet MDD 4 PRN Reason: Cough Albuterol Sulfate Inhaler - [Ventolin HFA Inhaler -] 1 - 2 inh PO Q4H #1 inhaler Ibuprofen 800 mg PO TID #30 tablet Prednisone [Deltasone -] 40 mg PO DAILY #10 tablet - Referrals Referrals: Piyush Moore MD, MD [Staff Physician] - - Patient Instructions Printed Discharge Instructions: DI for Asthma -- Adult, DI for Sinusitis Additional Instructions: You have congestion and cough. Please take the albuterol inhaler every 4 hours for the next week. Take the steroids as prescribed for the next five days. You are still covered by the z-pack that was prescribed to you on the . You may take 800mg of Motrin every 8 hours as needed for pain not to exceed 3,000mg a day. You were also prescribed robitussin. Please do not drive after taking this medication. Please follow up with your primary care doctor on Thursday. Return to the ED if you have worsened fevers, chills, shortness of breath or any changes in your symptoms - Post Discharge Activity
[2017-01-31] MEDS ORDERED: guaiFENesin/D-METHORPHAN HB 10 ML UNIT-DOSE CUPS ONE (15:23)
== END 2017-01-31 16:46 | disposition home or self-care (01) ==
LOC: JERFT 13:41
PROC: 3E0F7GC Introduction of Other Therapeutic Substance into Respiratory Tract, Via Natural or Artificial Opening (ICD-10-PCS; principal; 2017-01-31)
DX: J01.81 Other acute recurrent sinusitis (principal); J45.901 Unspecified asthma with (acute) exacerbation; Z87.891 Personal history of nicotine dependence
CPT/HCPCS: 94664; 99281-25

== ENCOUNTER 2017-12-13 15:25 | Emergency (ER) | payer OTHER ==
[2017-12-13 15:34] VITALS: BP 99/68; PULSE 72; TEMP 97.9; BMI 31.3
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
[2017-12-14] MEDS ORDERED: CEPHALEXIN MONOHYDRATE 500 MG CAPSULE (UD) ONE (07:18)
== END 2017-12-13 15:55 | disposition home or self-care (01) ==
LOC: JERFT 15:25
DX: T22.312A Burn of third degree of left forearm, initial encounter (principal); T31.0 Burns involving less than 10% of body surface; X15.0XXA Contact with hot stove (kitchen), initial encounter; Y93.89 Activity, other specified; Y92.030 Kitchen in apartment as the place of occurrence of the external cause; Y99.8 Other external cause status; H54.8 Legal blindness, as defined in USA; Z88.2 Allergy status to sulfonamides
CPT/HCPCS: 99281-25

== ENCOUNTER 2018-01-29 15:12 | Emergency (ER) | payer OTHER ==
[2018-01-29 15:17] VITALS: BP 115/72; PULSE 96; TEMP 98.1; BMI 30.2
--- NOTE | 2018-01-29 15:20 | PDOC ---
Rapid Medical Evaluation Medical Evaluation: Allergies Allergy/AdvReac Type Severity Reaction Status Date / Time sulfamethoxazole Allergy Verified 01/29/18 15:15 [From Bactrim] trimethoprim [From Bactrim] Allergy Verified 01/29/18 15:15 01/29/18 15:15 I have performed a brief in-person evaluation of this patient. The patient presents with a chief complaint of: Chest pain x 3 days 47 y/o F with no sig pmh presents with R sided CP x 3 days; pain is worse with coughing and sneezing. Denies fever, sob, n/v, rhinorrhea, sick contacts, recent travel, family history of CAD, smoking or drug use. On PE, lungs CTA B/L, cardio RRR, +reproducible L sided chest wall TTP Patient with no risk factors for ACS Plan: EKG, UCG, CXR The patient will proceed to the ED for further evaluation.
--- NOTE | 2018-01-29 17:02 | PDOC ---
History of Present Illness - General Chief Complaint: Pain, Acute Stated Complaint: CHEST PAIN Time Seen by Provider: 01/29/18 16:24 History Source: Patient - History of Present Illness Timing/Duration: reports: other Past History - Past Medical History Allergies/Adverse Reactions: Allergies Allergy/AdvReac Type Severity Reaction Status Date / Time sulfamethoxazole Allergy Verified 01/29/18 15:15 [From Bactrim] trimethoprim [From Bactrim] Allergy Verified 01/29/18 15:15 Home Medications: Ambulatory Orders Acetaminophen [Tylenol] 2 tab PO Q6H #30 capsule 01/29/18 Asthma: Yes COPD: No CHF: No DVT: No - Surgical History Abdominal Surgery: Yes (GASTRIC BYPASS: 10/2010) - Immunization History Td Vaccination: Yes Immunization Up to Date: Yes - Suicide/Smoking/Psychosocial Hx Smoking Status: Yes Smoking History: Former smoker Have you smoked in the past 12 months: No Number of Cigarettes Smoked Daily: 0 If you are a former smoker, when did you quit?: 20yrs Information on smoking cessation initiated: No Hx Alcohol Use: No Drug/Substance Use Hx: No Substance Use Type: None Respiratory Specific PMHX - Complaint Specific PMHX Angina: No Bronchitis: Yes Pneumonia: No Pulmonary Embolus: No TB (Tuberculosis): No Review of Systems - Review of Systems Constitutional: No: Fever Respiratory: No: Cough, Shortness of Breath Cardiac (ROS): Yes: Chest Pain. No: Lightheadedness, Palpitations, Syncope *Physical Exam - Vital Signs Last Vital Signs Temp Pulse Resp BP Pulse Ox 98.1 F 96 H 18 115/72 100 01/29/18 15:15 01/29/18 15:15 01/29/18 15:15 01/29/18 15:15 01/29/18 15:15 - Physical Exam General Appearance: Yes: Appropriately Dressed. No: Apparent Distress HEENT: positive: Normal Voice Neck: positive: Supple Respiratory/Chest: positive: Chest Tender (to L upper chest), Lungs Clear, Normal Breath Sounds. negative: Respiratory Distress Cardiovascular: positive: Regular Rate, S1, S2 Extremity: positive: Normal Inspection Integumentary: positive: Dry, Warm Neurologic: positive: Fully Oriented, Alert, Normal Mood/Affect ED Treatment Course - ADDITIONAL ORDERS Additional order review: Laboratory Results 01/29/18 15:42 Urine HCG, Qual Negative Medical Decision Making - Medical Decision Making 01/29/18 16:57 47-year-old female, denies any past medical history, here with left-sided, non- radiating chest pain for 3 days, sore in nature, 5/10, only hurts to touch and when she coughs. Pain does not get worse with exacerbation and denies shortness of breath, diaphoresis, nausea, vomiting, palpitations, leg pain, swelling, f/c. No similar pain in past. No recent trauma. No known history of CAD and no recent cardiac testing. see exam CP x 3 days Suspect MSK as very reproducible on exam, unlikely ACS or dissection and does not meet threshold for further w/u, PERCs out EKG and CXR normal -dc w/ pain control and pmd f/u *DC/Admit/Observation/Transfer Diagnosis at time of Disposition: Chest pain Qualifiers: Chest pain type: unspecified Qualified Code(s): R07.9 - Chest pain, unspecified - Discharge Dispostion Disposition: HOME Condition at time of disposition: Good - Prescriptions Prescriptions: Acetaminophen [Tylenol] 2 tab PO Q6H #30 capsule - Referrals - Patient Instructions Printed Discharge Instructions: DI for Chest Pain Additional Instructions: Your EKG and CXR was normal today Take tylenol for pain as needed If pain persists, please follow up with your PMD - Post Discharge Activity
--- NOTE | 2018-01-30 12:03 | EKG ---
Test Reason : Blood Pressure : / mmHG Vent. Rate : 088 BPM Atrial Rate : 088 BPM P-R Int : 140 ms QRS Dur : 084 ms QT Int : 354 ms P-R-T Axes : 043 011 022 degrees QTc Int : 428 ms NORMAL SINUS RHYTHM POSSIBLE LEFT ATRIAL ENLARGEMENT BORDERLINE ECG NO PREVIOUS ECGS AVAILABLE Confirmed by NAVEEN STEELE MD ([id number]) on 01/30/2018 12:03:30 PM Referred By: Confirmed By:NAVEEN STEELE MD
== END 2018-01-29 17:08 | disposition home or self-care (01) ==
LOC: JERFT 15:12
DX: R07.9 Chest pain, unspecified (principal); Z98.84 Bariatric surgery status; J45.909 Unspecified asthma, uncomplicated; Z87.891 Personal history of nicotine dependence
CPT/HCPCS: 71046-TC-FY; 84703; 93005; 93010; 99281-25

== ENCOUNTER 2018-05-10 17:41 | Emergency (ER) | payer OTHER ==
--- NOTE | 2018-05-10 17:52 | PDOC ---
Rapid Medical Evaluation Time Seen by Provider: 05/10/18 17:43 Medical Evaluation: Allergies Allergy/AdvReac Type Severity Reaction Status Date / Time sulfamethoxazole Allergy Verified 01/29/18 15:15 [From Bactrim] trimethoprim [From Bactrim] Allergy Verified 01/29/18 15:15 05/10/18 17:43 I have performed a brief in-person evaluation of this patient. The patient presents with a chief complaint of: right lower molar pain- on abx and motrin Pertinent physical exam findings: No palpable abscess I have ordered the following: nothing The patient will proceed to the ED for further evaluation. Discharge Disposition - Diagnosis Tooth ache - Referrals - Patient Instructions - Post Discharge Activity
[2018-05-10 18:01] VITALS: BP 103/67; PULSE 98; TEMP 97.7; BMI 36.3
[2018-05-10] MEDS ORDERED: ACETAMINOPHEN 500 MG TABLET (FP) PO ONE (18:40)
[2018-05-10] MEDS ORDERED: ACETAMINOPHEN 500 MG TABLET (FP) ONE (18:43)
--- NOTE | 2018-05-10 18:43 | PDOC ---
History of Present Illness - General Chief Complaint: Toothache Stated Complaint: TOOTH JEANNETTE Time Seen by Provider: 05/10/18 17:43 - History of Present Illness Initial Comments: 05/10/18 18:40 48-year-old female with a past medical history significant for dental issues. She is currently on a course of amoxicillin for toothache. She reports to the emergency room for further evaluation and treatment looking for a root canal. Her dentist 8 she needs a root canal. No fever Past History - Past Medical History Allergies/Adverse Reactions: Allergies Allergy/AdvReac Type Severity Reaction Status Date / Time sulfamethoxazole Allergy Verified 05/10/18 17:57 [From Bactrim] trimethoprim [From Bactrim] Allergy Verified 05/10/18 17:57 Home Medications: Ambulatory Orders Amoxicillin - [Amoxicillin 500mg Capsule -] 500 mg PO TID 05/10/18 Ibuprofen [Motrin -] 800 mg PO QID 05/10/18 Asthma: Yes COPD: No CHF: No DVT: No Other medical history: LEGAL BLIND - Surgical History Abdominal Surgery: Yes (GASTRIC BYPASS: 10/2010) - Immunization History Td Vaccination: Yes Immunization Up to Date: Yes - Suicide/Smoking/Psychosocial Hx Smoking Status: Yes Smoking History: Never smoked Have you smoked in the past 12 months: No Number of Cigarettes Smoked Daily: 0 If you are a former smoker, when did you quit?: 20yrs Hx Alcohol Use: No Drug/Substance Use Hx: No Substance Use Type: None Review of Systems - Review of Systems HEENTM: Yes: Dental Problems *Physical Exam - Vital Signs Last Vital Signs Temp Pulse Resp BP Pulse Ox 97.7 F 98 H 18 103/67 100 05/10/18 17:57 05/10/18 17:57 05/10/18 17:57 05/10/18 17:57 05/10/18 17:57 - Physical Exam Comments: 05/10/18 18:41 HEAD: NC/AT EYES: Conjuntiva clear NOSE: No d/c THROAT: Moist mucous membrances, oral pharanx clear, uvula midline; diffuse dental decay. No areas of abscesses visualized MS: Full ROM in all joints without edema NEUROLOGIC: No gross sensory or motor deficits, NVID SKIN: Normal color and temperature no lesions or rashes Moderate Sedation - Procedure Monitoring Vital Signs: Procedure Monitoring Vital Signs Temperature 97.7 F 05/10/18 17:57 Pulse Rate 98 H 05/10/18 17:57 Respiratory Rate 18 05/10/18 17:57 Blood Pressure 103/67 05/10/18 17:57 O2 Sat by Pulse Oximetry (%) 100 05/10/18 17:57 *DC/Admit/Observation/Transfer Diagnosis at time of Disposition: Tooth ache - Discharge Dispostion Disposition: HOME Condition at time of disposition: Stable Decision to Admit order: No - Referrals Referrals: Rosamaria Story MD [Primary Care Provider] - [facility] [Outside] - Patient Instructions Printed Discharge Instructions: DI for Dental Pain Additional Instructions: Please follow-up with urgent care dental for further evaluation and treatment options fear toothache continue the antibiotics as directed. - Post Discharge Activity
== END 2018-05-10 19:02 | disposition home or self-care (01) ==
LOC: JERFT 17:41
DX: K08.89 Other specified disorders of teeth and supporting structures (principal); J45.909 Unspecified asthma, uncomplicated; H54.8 Legal blindness, as defined in USA; Z98.84 Bariatric surgery status
CPT/HCPCS: 99281-25

== ENCOUNTER 2019-09-08 15:58 | Emergency (ER) | payer OTHER ==
[2019-09-08 16:04] VITALS: BP 110/65; PULSE 92; TEMP 98.5; BMI 32.3
--- NOTE | 2019-09-08 16:06 | PDOC ---
Rapid Medical Evaluation Chief Complaint: Injury Time Seen by Provider: 09/08/19 16:01 Medical Evaluation: Allergies Allergy/AdvReac Type Severity Reaction Status Date / Time sulfamethoxazole Allergy Verified 05/10/18 17:57 [From Bactrim] trimethoprim [From Bactrim] Allergy Verified 05/10/18 17:57 09/08/19 16:03 CC: fell off a ladder from 2 feet off ground and hit a big ceramic vase Exam: tender over cva region and post 10-11 ribs on left side Plan: ua, rib xray Discharge Disposition - Diagnosis Fall - Referrals - Patient Instructions - Post Discharge Activity
[2019-09-08] MEDS ORDERED: METHOCARBAMOL 500 MG TABLET PO ONE (16:49)
[2019-09-08] MEDS ORDERED: KETOROLAC TROMETHAMINE 60 MG/2 ML VIAL IM ONE (16:49)
--- NOTE | 2019-09-08 17:07 | PDOC ---
History of Present Illness - General Chief Complaint: Injury Stated Complaint: SLIP AND FALL Time Seen by Provider: 09/08/19 16:01 History Source: Patient Exam Limitations: Clinical Condition - History of Present Illness Initial Comments: 09/08/19 17:02 Patient with no significant past medical history present with complaint of pain to left flank and low back pain status post falling off a ladder over an hour ago. Patient reports she was stepping down from a ladder and thought she was already on the ground but was 3 steps up and fell off hitting the left lateral rib over a pack in the kitchen. Patient denies hitting head or loss of consciousness. Patient report severe pain to left flank area from the fall. Denies any hematuria. Denies any other symptoms. Patient did not take anything for symptoms Occurred: reports: just prior to arrival Pain Location: reports: back Method of Injury: Yes: fall Past History - Medical History Allergies/Adverse Reactions: Allergies Allergy/AdvReac Type Severity Reaction Status Date / Time sulfamethoxazole Allergy Verified 09/08/19 16:04 [From Bactrim] trimethoprim [From Bactrim] Allergy Verified 09/08/19 16:04 Home Medications: Ambulatory Orders Amoxicillin - [Amoxicillin 500mg Capsule -] 500 mg PO TID 05/10/18 Ibuprofen [Motrin -] 800 mg PO QID 05/10/18 Ketorolac Tromethamine [Toradol] 10 mg PO Q8H PRN #16 tablet 09/08/19 Methocarbamol [Robaxin -] 500 mg PO BID PRN #14 tablet 09/08/19 Asthma: Yes COPD: No CHF: No DVT: No - Surgical History Abdominal Surgery: Yes (GASTRIC BYPASS: 10/2010) - Immunization History Td Vaccination: Yes Immunization Up to Date: Yes - Psycho-Social/Smoking History Smoking Status: Yes Smoking History: Never smoked Have you smoked in the past 12 months: No Number of Cigarettes Smoked Daily: 0 If you are a former smoker, when did you quit?: 20yrs - Substance Abuse Hx (Audit-C & DAST Scrn) How often the patient has a drink containing alcohol: Never Score: In Men: 4 or > Positive; In Women: 3 or > Positive: 0 Screen Result (Pos requires Nsg. Audit-10AR): Negative Trauma Specific PMHX - Complaint Specific PMHX Arthritis: No Back Injury: No Neck Injury: No Hx Sacro Iliac Joint Dysfunction: No Review of Systems - Review of Systems Able to Perform ROS?: Yes Is the patient limited Guinean proficient: No Constitutional: No: Chills, Fever, Weakness HEENTM: No: Symptoms Reported, See HPI, Eye Pain, Blurred Vision, Tearing, Recent change in vision, Double Vision, Cataracts, Ear Pain, Ocular Prothesis, Ear Discharge, Nose Pain, Nose Congestion, Tinnitus, Nose Bleeding, Hearing Loss, Throat Pain, Throat Swelling, Mouth Pain, Dental Problems, Difficulty Swallowing, Mouth Swelling, Other Respiratory: No: Symptoms reported, See HPI, Cough, Orthopnea, Shortness of Breath, SOB with Exertion, SOB at Rest, Stridor, Wheezing, Productive cough, Hemoptysis, Other Cardiac (ROS): No: Symptoms Reported, See HPI, Chest Pain, Edema, Irregular Heart Rate, Lightheadedness, Palpitations, Syncope, Chest Tightness, Other ABD/GI: No: Symptoms Reported, See HPI, Nausea, Vomiting : No: Symptoms Reported, Hematuria Musculoskeletal: Yes: Symptoms Reported, See HPI, Back Pain (Left mid back on the lateral aspect.), Muscle Pain (Left lateral lower rib cage pain) Integumentary: No: Symptoms Reported Neurological: No: Headache, Numbness, Weakness, Dizziness All Other Systems: Reviewed and Negative *Physical Exam - Vital Signs Last Vital Signs Temp Pulse Resp BP Pulse Ox 98.5 F 92 H 18 110/65 99 09/08/19 16:01 09/08/19 16:01 09/08/19 16:01 09/08/19 16:01 09/08/19 16:01 - Physical Exam 09/08/19 17:05 GENERAL: Well developed, well nourished. Awake and alert in mild acute distress. CARDIOVASCULAR: Regular rate and rhythm. No murmurs, rubs, or gallops. PULMONARY: No evidence of respiratory distress. Lungs clear to auscultation bilaterally. No wheezing, rales or rhonchi. ABDOMINAL: Soft. Non-tender. Non-distended. No rebound or guarding. No organomegaly. Normoactive bowel sounds MUSCULOSKELETAL : Moderate tenderness over posterior paravertebral muscle of thoracic spine of T10-T12 and left lower rib cage on left side. No midline tenderness. No bony deformities SKIN: Warm and dry. Normal capillary refill. No skin bruising or ecchymosis. NEUROLOGICAL: Alert, awake, appropriate. No motor deficits in the lower extremities. Gait is normal without ataxia. PSYCHIATRIC: Cooperative. Good eye contact. Appropriate mood and affect. General Appearance: Yes: Nourished, Appropriately Dressed, Apparent Distress, Mild Distress Medical Decision Making - Medical Decision Making 09/08/19 17:04 Patient with no significant past medical history present with complaint of pain to left flank and low back pain status post falling off a ladder over an hour ago. Patient reports she was stepping down from a ladder and thought she was already on the ground but was 3 steps up and fell off hitting the left lateral rib over a pack in the kitchen. Patient denies hitting head or loss of consciousness. Patient report severe pain to left flank area from the fall. Denies any hematuria. Denies any other symptoms. Patient did not take anything for symptoms Exam significant for moderate point tenderness to lateral aspect of 10-12 rib on left side. No midline tenderness. No tenderness right side. No chest wall tenderness. Symptoms likely rib contusion. Rib series x-ray shows no acute fracture. Will do a UA to evaluate for kidney injury. We will give a dose of Toradol 60 mg IM Robaxin thousand milligrams p.o. after UA results for pain 09/08/19 18:00 UA shows no hematuria. Patient stable for discharge on p.o. Toradol PRN for pain and Robaxin for spasm with advised to do hot compresses with PCP follow-up as needed Discharge - Discharge Information Problems reviewed: Yes Clinical Impression/Diagnosis: Fall Qualifiers: Encounter type: initial encounter Qualified Code(s): W19.XXXA - Unspecified fall, initial encounter Contusion of rib on left side Qualifiers: Encounter type: initial encounter Qualified Code(s): S20.212A - Contusion of left front wall of thorax, initial encounter Condition: Stable Disposition: HOME - Admission No - Additional Discharge Information Prescriptions: Methocarbamol [Robaxin -] 500 mg PO BID PRN #14 tablet PRN Reason: Back Pain Ketorolac Tromethamine [Toradol] 10 mg PO Q8H PRN #16 tablet PRN Reason: pain - Follow up/Referral Referrals: Rosamaria Story MD [Primary Care Provider] - - Patient Discharge Instructions Patient Printed Discharge Instructions: DI for Rib Contusion Additional Instructions: X-ray of your ribs shows no acute fracture. Your pain is likely from muscle contusion. Take prescribed medication as needed for pain. Apply heat to rib area as needed for pain. Follow-up with your primary care as needed - Post Discharge Activity
[2019-09-08] MEDS ORDERED: METHOCARBAMOL 500 MG TABLET ONE (17:09)
[2019-09-08] MEDS ORDERED: KETOROLAC TROMETHAMINE 60 MG/2 ML VIAL ONE (17:09)
[2019-09-08 17:42] LABS: URINE APPEARANCE CLEAR; URINE BILIRUBIN NEGATIVE (NEGATIVE); URINE COLOR YELLOW; URINE GLUCOSE (UA) NEGATIVE (NEGATIVE); URINE KETONE TRACE (NEGATIVE); URINE LEUK ESTERASE NEGATIVE (NEGATIVE); URINE NITRITE NEGATIVE (NEGATIVE); URINE PROTEIN NEGATIVE (NEGATIVE)
== END 2019-09-08 17:47 | disposition home or self-care (01) ==
LOC: JERFT 15:58
PROC: 3E023GC Introduction of Other Therapeutic Substance into Muscle, Percutaneous Approach (ICD-10-PCS; principal; 2019-09-08)
DX: S20.212A Contusion of left front wall of thorax, initial encounter (principal); W11.XXXA Fall on and from ladder, initial encounter
CPT/HCPCS: 71101-TC-LT-FY; 81003; 99284-25

== ENCOUNTER 2020-03-04 17:16 | Emergency (ER) | payer OTHER ==
[2020-03-04 17:30] VITALS: BP 115/73; PULSE 91; TEMP 98; BMI 33.3
== END 2020-03-04 19:45 | disposition home or self-care (01) ==
LOC: JER 17:16
DX: R05 Cough (principal)
CPT/HCPCS: 71046-TC-FY; 93005; 93010; 99284-25

== ENCOUNTER 2021-08-28 17:06 | Emergency (ER) | payer OTHER ==
[2021-08-28 17:34] VITALS: BP 100/64; PULSE 83; TEMP 98.7; BMI 34.3
[2021-08-28] MEDS ORDERED: KETOROLAC TROMETHAMINE 30 MG/1 ML VIAL IM ONE (18:30)
[2021-08-28] MEDS ORDERED: KETOROLAC TROMETHAMINE 30 MG/1 ML VIAL ONE (18:43)
== END 2021-08-28 19:06 | disposition home or self-care (01) ==
LOC: JERFT 17:06 → JER 17:06 → JERFT 19:06
PROC: 3E023GC Introduction of Other Therapeutic Substance into Muscle, Percutaneous Approach (ICD-10-PCS; principal; 2021-08-28)
DX: M43.6 Torticollis (principal)
CPT/HCPCS: 96372; 99284-25

== ENCOUNTER 2021-09-07 13:36 | Emergency (ER) | payer OTHER ==
[2021-09-07 13:50] VITALS: BP 102/70; PULSE 94; TEMP 98.2; BMI 34.1
[2021-09-07 16:04] LABS: THROAT:GRP A STREP NOT DETECTED (NOTDETECTED)
== END 2021-09-07 17:21 | disposition home or self-care (01) ==
LOC: JER 13:36
DX: J02.9 Acute pharyngitis, unspecified (principal); B34.9 Viral infection, unspecified
CPT/HCPCS: 0241U-QW; 87651; 99283-25

== ENCOUNTER 2022-01-06 16:02 | Emergency (ER) | payer OTHER ==
[2022-01-06 16:16] VITALS: BP 106/65; PULSE 85; RESP 18; TEMP 97.8; BMI 34.3
== END 2022-01-06 20:38 | disposition home or self-care (01) ==
LOC: JER 16:02 → JERFT 16:02
DX: J02.9 Acute pharyngitis, unspecified (principal)
CPT/HCPCS: 0241U-QW; 87651; 99281-25

== ENCOUNTER 2022-09-10 14:16 | Emergency (ER) | payer OTHER ==
[2022-09-10 14:51] VITALS: BMI 35.3
[2022-09-10] MEDS ORDERED: methylPREDNISolone NA SUCC 125 MG/2 ML VIAL IVPUSH ONE (15:34)
[2022-09-10] MEDS ORDERED: ALBUTEROL SO4 2.5/IPRATROPIUM 0.5 INH SOL 3 ML VIAL.NEB. NEB ONE (16:03)
[2022-09-10] MEDS ORDERED: methylPREDNISolone NA SUCC 125 MG/2 ML VIAL ONE (16:04)
[2022-09-10] MEDS: ALBUTEROL SO4 2.5/IPRATROPIUM 0.5 INH SOL 3 ML VIAL.NEB. NEB SCH ×4 (16:15→17:00)
[2022-09-10 16:56] LABS: BASO % 1.1 % (0-2.0); EOS % 5.2 % (0-4.5); HEMOGLOBIN 12.3 GM/dL (10.7-15.3); LYMPH % 33.5 % (8-40); MCHC 32.4 g/dl (32.0-36.0); MEAN CELL VOLUME 83.5 fl (80-96); MEAN PLT VOLUME 7.8 fl (7.5-11.1); MONO % 12.1 % (3.8-10.2); NEUT % 48.1 % (42.8-82.8); PLATELET COUNT 372 10^3/uL (134-434); RBC 4.55 M/mm3 (3.60-5.2); RDW 14.8 % (11.6-15.6)
[2022-09-10 17:16] LABS: BLOOD UREA NITROGEN 11.4 mg/dL (7-18); CALCIUM 9.3 mg/dL (8.5-10.1)
[2022-09-10 17:17] LABS: ALBUMIN 3.4 g/dl (3.4-5.0)
[2022-09-10 17:20] LABS: CREATININE 0.6 mg/dL (0.55-1.3)
[2022-09-10 17:21] LABS: BILIRUBIN,TOTAL 0.4 mg/dL (0.2-1)
[2022-09-10 17:32] VITALS: BP 106/63; PULSE 101; RESP 22; TEMP 97.6
== END 2022-09-10 18:27 | disposition home or self-care (01) ==
LOC: JER 14:16
PROC: 3E033GC Introduction of Other Therapeutic Substance into Peripheral Vein, Percutaneous Approach (ICD-10-PCS; principal; 2022-09-10)
PROC: 3E0F7GC Introduction of Other Therapeutic Substance into Respiratory Tract, Via Natural or Artificial Opening (ICD-10-PCS; 2022-09-10)
DX: J45.20 Mild intermittent asthma, uncomplicated (principal); R07.89 Other chest pain; R06.02 Shortness of breath; R05.9 Cough, unspecified; Z20.822 Contact with and (suspected) exposure to COVID-19
CPT/HCPCS: 0241U-QW; 36415; 71045-TC-FY; 80053; 84484; 85025; 93005; 93010; 99285-25

== ENCOUNTER 2022-09-12 11:52 | Emergency (ER) | payer OTHER ==
[2022-09-12 12:08] VITALS: BP 99/61; PULSE 93; RESP 18; TEMP 97.8; BMI 36.1
== END 2022-09-12 13:34 | disposition home or self-care (01) ==
LOC: JERFT 11:52
DX: R50.9 Fever, unspecified (principal)
CPT/HCPCS: 99282-25

== ENCOUNTER 2022-12-15 20:00 | Emergency (ER) | payer OTHER ==
[2022-12-15 20:19] VITALS: BP 150/90; PULSE 80; RESP 18; TEMP 97.8; BMI 37.3
[2022-12-15 22:23] LABS: EPI CELLS 11 /uL (0-25.1); HYALINE CASTS 0 /uL (0-3.1); URINE APPEARANCE CLEAR; URINE BACTERIA 22 /uL (0-1359); URINE BILIRUBIN NEGATIVE (NEGATIVE); URINE COLOR YELLOW; URINE GLUCOSE (UA) NEGATIVE (NEGATIVE); URINE KETONE NEGATIVE (NEGATIVE); URINE LEUK ESTERASE TRACE (NEGATIVE); URINE NITRITE NEGATIVE (NEGATIVE); URINE PROTEIN NEGATIVE (NEGATIVE); URINE RBC 5 /uL (0-23.9); URINE UROBILINOGEN 0.2 mg/dL (0.2-1.0); URINE WBC 28 /uL (0-25.8)
== END 2022-12-15 22:47 | disposition home or self-care (01) ==
LOC: JERFT 20:00 → JER 20:00 → JERFT 22:47
DX: Z20.822 Contact with and (suspected) exposure to COVID-19 (principal); R35.0 Frequency of micturition
CPT/HCPCS: 0241U-QW; 81003; 87086; 99283-25

== ENCOUNTER 2022-12-21 11:52 | Emergency (ER) | payer OTHER ==
[2022-12-21 12:03] VITALS: BP 100/67; PULSE 93; RESP 20; TEMP 98.2; BMI 36.3
== END 2022-12-21 14:16 | disposition home or self-care (01) ==
LOC: JERFT 11:52 → JER 11:52
DX: Z20.822 Contact with and (suspected) exposure to COVID-19 (principal)
CPT/HCPCS: 0241U-QW; 99283-25

== ENCOUNTER 2022-12-25 18:16 | Emergency (ER) | payer OTHER ==
[2022-12-25 18:37] VITALS: BP 99/58; PULSE 91; RESP 18; TEMP 98.3; BMI 36.3
== END 2022-12-25 20:12 | disposition home or self-care (01) ==
LOC: JER 18:16 → JERFT 18:16
DX: Z20.822 Contact with and (suspected) exposure to COVID-19 (principal)
CPT/HCPCS: 0241U-QW; 99283-25

== ENCOUNTER 2023-02-12 13:49 | Emergency (ER) | payer OTHER ==
[2023-02-12 14:13] VITALS: TEMP 97.9; BMI 36.3
[2023-02-12 15:25] LABS: EPI CELLS 17 /uL (0-25.1); HYALINE CASTS 1 /uL (0-3.1); PH,URINE 5.5 (5.0-8.0); URINE APPEARANCE Error; URINE BACTERIA 74 /uL (0-1359); URINE BILIRUBIN NEGATIVE (NEGATIVE); URINE COLOR DK YELLOW; URINE GLUCOSE (UA) TRACE (NEGATIVE); URINE KETONE NEGATIVE (NEGATIVE); URINE LEUK ESTERASE 1+ (NEGATIVE); URINE NITRITE NEGATIVE (NEGATIVE); URINE PROTEIN TRACE (NEGATIVE); URINE RBC 309 /uL (0-23.9); URINE UROBILINOGEN 0.2 mg/dL (0.2-1.0); URINE WBC 352 /uL (0-25.8)
[2023-02-12] MEDS ORDERED: PHENAZOPYRIDINE HCL 100 MG TABLET (FP) PO ONE (16:09)
[2023-02-12 16:27] LABS: BASO % 0.6 % (0-2.0); EOS % 1.6 % (0-4.5); HEMATOCRIT 36.3 % (32.4-45.2); HEMOGLOBIN 11.6 GM/dL (10.7-15.3); LYMPH % 21.6 % (8-40); MCH 25.7 pg (25.7-33.7); MCHC 32.1 g/dl (32.0-36.0); MEAN PLT VOLUME 7.3 fl (7.5-11.1); MONO % 8.5 % (3.8-10.2); NEUT % 67.7 % (42.8-82.8); PLATELET COUNT 352 10^3/uL (134-434); RBC 4.54 M/mm3 (3.60-5.2); RDW 15.6 % (11.6-15.6); WHITE BLOOD COUNT 9.2 K/mm3 (4.0-10.0)
[2023-02-12] MEDS ORDERED: PHENAZOPYRIDINE HCL 100 MG TABLET (FP) ONE (16:32)
[2023-02-12 16:50] LABS: ALBUMIN 3.3 g/dl (3.4-5.0); BLOOD UREA NITROGEN 12.4 mg/dL (7-18); CALCIUM 8.1 mg/dL (8.5-10.1)
[2023-02-12 16:55] LABS: BILIRUBIN,TOTAL 0.4 mg/dL (0.2-1); TOT PROT 6.6 g/dl (6.4-8.2)
[2023-02-12 16:59] LABS: CREATININE 0.6 mg/dL (0.55-1.3)
[2023-02-12 17:46] VITALS: BP 106/72; PULSE 82; RESP 16
== END 2023-02-12 17:48 | disposition home or self-care (01) ==
LOC: JER 13:49
DX: N30.91 Cystitis, unspecified with hematuria (principal); R10.30 Lower abdominal pain, unspecified; R30.0 Dysuria
CPT/HCPCS: 36415; 80053; 81003; 85025; 87086; 99283-25

== ENCOUNTER → 2023-04-28 | Day surgery (SDC) | payer OTHER ==
[2023-04-21 14:40] VITALS: BMI 36.3
== END | disposition home or self-care (01) ==
LOC: JASU-ENDO 04:20
PROVIDERS: ATTEND Internal Medicine Gastroenterology
DX: Z53.8 Procedure and treatment not carried out for other reasons (principal)

== ENCOUNTER 2023-05-07 04:18 | Day surgery (SDC) | payer OTHER ==
[2023-05-04 11:55] VITALS: BMI 36.3
[2023-05-07 13:20] VITALS: TEMP 97.1
[2023-05-07 13:21] VITALS: PULSE 63; RESP 18
[2023-05-07 13:22] VITALS: BP 104/76
== END 2023-05-07 13:25 | disposition home or self-care (01) ==
LOC: JASU-ENDO 04:18
PROVIDERS: ATTEND Internal Medicine Gastroenterology
PROC: 0DB68ZX Excision of Stomach, Via Natural or Artificial Opening Endoscopic, Diagnostic (ICD-10-PCS; 2023-05-07)
PROC: 0DBA8ZX Excision of Jejunum, Via Natural or Artificial Opening Endoscopic, Diagnostic (ICD-10-PCS; principal; 2023-05-07 11:15)
DX: K44.9 Diaphragmatic hernia without obstruction or gangrene (principal); Z98.84 Bariatric surgery status
CPT/HCPCS: 82962; 88305-TC; 88342-TC

== ENCOUNTER 2023-06-18 14:39 | Emergency (ER) | payer OTHER ==
[2023-06-18 14:47] VITALS: PULSE 87; RESP 18; TEMP 97; BMI 35.5
[2023-06-18] MEDS ORDERED: KETOROLAC TROMETHAMINE 30 MG/1 ML VIAL ONE (15:21)
[2023-06-18] MEDS ORDERED: LIDOCAINE 4% PATCH TP ONE (15:22)
[2023-06-18 15:23] VITALS: BP 107/61
[2023-06-18] MEDS: KETOROLAC TROMETHAMINE 30 MG/1 ML VIAL IM ONE (15:36)
[2023-06-18] MEDS: LIDOCAINE 4% PATCH TP ONE (15:36)
== END 2023-06-18 15:53 | disposition home or self-care (01) ==
LOC: JERFT 14:39
PROC: 3E0233Z Introduction of Anti-inflammatory into Muscle, Percutaneous Approach (ICD-10-PCS; principal; 2023-06-18)
DX: M54.50 Low back pain, unspecified (principal); V49.50XA Passenger injured in collision with unspecified motor vehicles in traffic accident, initial encounter; Y93.I9 Activity, other involving external motion; Y92.410 Unspecified street and highway as the place of occurrence of the external cause
CPT/HCPCS: 99284-25

== ENCOUNTER 2023-08-25 13:04 | Emergency (ER) | payer OTHER ==
[2023-08-25 13:11] VITALS: BP 98/59; PULSE 107; RESP 18; TEMP 98.8; BMI 36.1
[2023-08-25] MEDS ORDERED: predniSONE 20 MG TABLET (UD) ONE (15:14)
[2023-08-25] MEDS ORDERED: ALBUTEROL SO4 2.5/IPRATROPIUM 0.5 INH SOL 3 ML VIAL.NEB. NEB ONE (15:14)
[2023-08-25] MEDS: ALBUTEROL SO4 2.5/IPRATROPIUM 0.5 INH SOL 3 ML VIAL.NEB. NEB ONE (15:20)
[2023-08-25] MEDS: predniSONE 20 MG TABLET (UD) PO ONE (15:20)
== END 2023-08-25 16:44 | disposition home or self-care (01) ==
LOC: JERFT 13:04 → JER 13:04
PROC: 3E0F7GC Introduction of Other Therapeutic Substance into Respiratory Tract, Via Natural or Artificial Opening (ICD-10-PCS; principal; 2023-08-25)
DX: J45.909 Unspecified asthma, uncomplicated (principal); R07.89 Other chest pain; R00.0 Tachycardia, unspecified; Z20.822 Contact with and (suspected) exposure to COVID-19
CPT/HCPCS: 0241U-QW; 71046-TC-FY; 93005; 93010; 99284-25

== ENCOUNTER 2024-03-13 11:08 | Emergency (ER) | payer OTHER ==
[2024-03-13 11:21] VITALS: BP 109/77; PULSE 70; RESP 18; TEMP 97.9; BMI 35.3
[2024-03-13 12:21] LABS: EPI CELLS 2 /uL (0-25.1); HYALINE CASTS 0 /uL (0-3.1); URINE APPEARANCE CLOUDY; URINE BACTERIA 51 /uL (0-1359); URINE BILIRUBIN NEGATIVE (NEGATIVE); URINE COLOR YELLOW; URINE GLUCOSE (UA) NEGATIVE (NEGATIVE); URINE KETONE NEGATIVE (NEGATIVE); URINE LEUK ESTERASE 3+ (NEGATIVE); URINE NITRITE NEGATIVE (NEGATIVE); URINE PROTEIN TRACE (NEGATIVE); URINE RBC 402 /uL (0-23.9); URINE WBC 2735 /uL (0-25.8)
== END 2024-03-13 13:50 | disposition home or self-care (01) ==
LOC: JER 11:08 → JERFT 11:08
DX: N39.0 Urinary tract infection, site not specified (principal); R10.2 Pelvic and perineal pain
CPT/HCPCS: 81003; 87086; 99283-25

== ENCOUNTER 2024-09-17 16:21 | Emergency (ER) | payer OTHER ==
[2024-09-17 16:32] VITALS: BP 112/67; PULSE 90; RESP 18; TEMP 98.3; BMI 36.3
== END 2024-09-17 17:38 | disposition home or self-care (01) ==
LOC: JER 16:21 → JERFT 16:21
DX: Z20.822 Contact with and (suspected) exposure to COVID-19 (principal)
CPT/HCPCS: 87637-QW; 99283-25